=== PATIENT | male | born 2000 | race Caucasian/White ===

== ENCOUNTER 2018-03-17 18:08 | Emergency (ER) | payer BC ==
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
[2018-03-17] MEDS ORDERED: ceFAZolin 1 GM VIAL IVP ONE (18:50)
--- NOTE | 2018-03-17 19:12 | RADIOLOGY IMAGING REPORT ---
FACILITY: [facility] [place] PATIENT NAME: Catarino Jo : 2000 MR: [id number] V: [id number] EXAM DATE: ORDERING PHYSICIAN: LOC JEWELL TECHNOLOGIST: Location: [facility] [place] Patient: Catarino Jo : 2000 Visit/Account:[id number] Date of Sevice: 03/17/2018 EXAMINATION: Three views of the right third finger. HISTORY: Finger injury. COMPARISON: None. FINDINGS: There is a comminuted fracture through the tuft of the distal phalanx of the right third finger, with surrounding soft tissue swelling and deformity. No evidence of additional fracture or dislocation along the third finger. Normal alignment at the IP joints. No radiopaque foreign body. IMPRESSION: Comminuted fracture through the tuft of the distal phalanx of the right third finger, wi th surrounding soft tissue injury. Report Dictated By: Derek Henry MD at 03/17/2018 7:06 PM Report E-Signed By: Derek Henry MD at 03/17/2018 7:07 PM WSN:[id number]
[2018-03-17 19:30] VITALS: BP 126/94
[2018-03-17] MEDS ORDERED: CEPH500T7 PO (19:32)
[2018-03-17] MEDS ORDERED: BACITRACIN OINT 0.9 GM PKT TP ONE (19:35)
== END 2018-03-17 19:53 | disposition home or self-care (01) ==
LOC: ER 18:43
DX: S62.660B Nondisplaced fracture of distal phalanx of right index finger, initial encounter for open fracture (principal)
CPT/HCPCS: 12002; 73140; 96374; 99284; J0690

== ENCOUNTER 2019-05-25 01:19 | Emergency (ER) | payer BC ==
[~2019-05-25 01:19] MED LIST: CEPH500T7 PO
[2019-05-25 01:20] VITALS: BP 113/88
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
== END 2019-05-25 01:31 ==
LOC: ER 01:30
DX: Z02.89 Encounter for other administrative examinations (principal); F10.920 Alcohol use, unspecified with intoxication, uncomplicated
CPT/HCPCS: 99281